=== PATIENT | female | born 1970 | race African-American/Black ===

== ENCOUNTER 2016-09-04 09:01 | Emergency (ER) | payer OTHER ==
[2016-09-04 09:12] VITALS: BP 108/72; PULSE 62; TEMP 98.9; BMI 21.2
--- NOTE | 2016-09-04 10:15 | PDOC ---
History of Present Illness - General Chief Complaint: Ear Problem Stated Complaint: LOSS OF HEARING IN LT EAR Time Seen by Provider: 09/04/16 10:00 History Source: Patient Exam Limitations: No Limitations - History of Present Illness Initial Comments: 09/04/16 10:12 46 yr female with right eat pain and loss of hearing for 1 days. Past History - Past Medical History Allergies/Adverse Reactions: Allergies Allergy/AdvReac Type Severity Reaction Status Date / Time No Known Allergies Allergy Verified 09/04/16 09:10 Home Medications: Ambulatory Orders Amoxicillin/Potassium Clav [Augmentin 875-125 Tablet] 1 each PO BID #20 tablet 09/04/16 Other medical history: denies - Psycho/Social/Smoking Cessation Hx Anxiety: No Suicidal Ideation: No Smoking History: Never smoked Information on smoking cessation initiated: No Hx Alcohol Use: No Drug/Substance Use Hx: No Substance Use Type: None Review of Systems - Review of Systems Able to Perform ROS?: Yes Is the patient limited Mohawk proficient: No Constitutional: No: Symptoms Reported HEENTM: Yes: See HPI *Physical Exam - Vital Signs Last Vital Signs Temp Pulse Resp BP Pulse Ox 98.9 F 62 20 108/72 100 09/04/16 09:10 09/04/16 09:10 09/04/16 09:10 09/04/16 09:10 09/04/16 09:10 - Physical Exam General Appearance: Yes: Nourished, Appropriately Dressed HEENT: positive: EOMI, YUNIOR, Pharynx Normal, TM Erythema (right ear with bulging of TM) Neck: positive: Supple Respiratory/Chest: positive: Lungs Clear, Normal Breath Sounds Cardiovascular: positive: Regular Rhythm, Regular Rate Gastrointestinal/Abdominal: positive: Normal Bowel Sounds, Soft Musculoskeletal: positive: Normal Inspection Extremity: positive: Normal Inspection, Normal Range of Motion Integumentary: positive: Normal Color, Dry Neurologic: positive: Fully Oriented, Alert, Normal Mood/Affect, Normal Response , Motor Strength 5/5 Medical Decision Making - Medical Decision Making 09/04/16 19:50 cc: right ear pain, hearing loss, pain had URI symptoms last week, chest cold will treat for AOM, motrin for pain follow with ENT for follow up pt agrees with plan all questions asked and asnwered *DC/Admit/Observation/Transfer Diagnosis at time of Disposition: Otitis media Qualifiers: Otitis media type: suppurative Laterality: right Chronicity: acute Recurrence: recurrent Spontaneous tympanic membrane rupture: without spontaneous rupture Qualified Code(s): H66.004 - Acute suppurative otitis media without spontaneous rupture of ear drum, recurrent, right ear - Prescriptions Prescriptions: Amoxicillin/Potassium Clav [Augmentin 875-125 Tablet] 1 each PO BID #20 tablet - Referrals Referrals: Pedro Luis Jones MD [Primary Care Provider] - Glenn Chacon MD [Staff Physician] - - Patient Instructions Additional Instructions: follow with ENT across the street call to make appointment for next week if symptoms do not improve in 3-4 days take Augmentin as directed take acidophilus pills (any pharmacy sells them) or eat 2 cups yogurt daily to avoid upset stomach or yeast infection follow with your doctor if not improving nothing in the ear no water or Qtips
== END 2016-09-04 10:24 | disposition home or self-care (01) ==
LOC: JERFT 09:01
DX: H66.004 Acute suppurative otitis media without spontaneous rupture of ear drum, recurrent, right ear (principal)
CPT/HCPCS: 99281-25